=== PATIENT | male | born 1965 | race Caucasian/White ===

== ENCOUNTER → 2017-02-11 | Day surgery (SDC) | payer OTHER ==
[~2017-02-11] VITALS: Ht 180.3 cm; Wt 101.2 kg
[~2017-02-11] MED LIST: ASPIR 8181 MG PO; ASPIRIN325 MG PO; CELEBREX200 MG PO; DIABETA 5 MG TAB5 MG PO; ELIQUIS 2.5 MG2.5 MG PO; GLUCOVANCE 2.51 EACH PO; LISINOPRIL40 MG PO; METFORMIN HCL1000 MG PO; NEURONTIN 300300 MG PO; NIACIN500 M1 PO; NORCO 5-325 TA1 EACH PO; NORVASC 5 MG TAB5 MG PO; PERCOCET 7.5-31 EACH PO; PRAVACHOL40 MG PO; PRAVASTATIN SOD40 MG PO; TRAMADOL HCL50 MG PO
[2017-02-11 09:43] LABS: HEMOGLOBIN 14.5 gm/dl (14.0-17.5); RED BLOOD COUNT 4.86 M/UL (4.20-5.50); WHITE BLOOD COUNT 8.1 K/UL (4.5-11.0)
[2017-02-11 09:58] LABS: BUN/CREATININE RATIO 21 (0-10)
== END | disposition home or self-care (01) ==
LOC: OR 09:02
PROVIDERS: Orthopaedic Surgery
PROC: 01N50ZZ Release Median Nerve, Open Approach (ICD-10-PCS; principal; 2017-02-11 12:15)
DX: G56.02 Carpal tunnel syndrome, left upper limb (principal); I10 Essential (primary) hypertension; E11.9 Type 2 diabetes mellitus without complications; G89.29 Other chronic pain; M54.9 Dorsalgia, unspecified; M19.90 Unspecified osteoarthritis, unspecified site; Z79.1 Long term (current) use of non-steroidal anti-inflammatories (NSAID); Z79.82 Long term (current) use of aspirin; Z79.891 Long term (current) use of opiate analgesic; Z79.899 Other long term (current) drug therapy; Z98.890 Other specified postprocedural states
CPT/HCPCS: 36415; 80048; 82962; 85025; J0690; J2250; J3010; J7030; J7120

== ENCOUNTER 2022-06-26 08:56 | Emergency (ER) | payer MEDICARE, OTHER ==
[~2022-06-26 08:56] MED LIST changes: +KEFLEX500 MG PO; +TORADOL 10 MG T10 MG PO
[2022-06-26 09:55] LABS: HEMOGLOBIN 14.3 gm/dl (14.0-17.5); RED BLOOD COUNT 4.9 M/UL (4.20-5.50); WHITE BLOOD COUNT 9.5 K/UL (4.5-11.0)
[2022-06-26 10:37] LABS: BUN/CREATININE RATIO 20 (0-10)
[2022-06-26] MEDS ORDERED: CYCLOBENZAPRINE10 MG PO (13:14)
== END 2022-06-26 13:20 | disposition home or self-care (01) ==
LOC: ER1 08:56
PROVIDERS: Physician Assistant
DX: U07.1 COVID-19 (principal); E11.9 Type 2 diabetes mellitus without complications; I10 Essential (primary) hypertension
CPT/HCPCS: 71045; 80053; 82550; 82553; 83880; 84484; 85025; 85379; 93005; 96374; 99285; J1885